=== PATIENT | male | born 1940 | race Two or more races ===

== ENCOUNTER 2023-04-24 07:35 | Outpatient (CLI) | payer OTHER ==
[~2023-04-24 07:35] MED LIST: ALPHAGAN P5 M2 OP; DAFLONEX-XL TA1 EACH PO; FELODIPINE ER2.5 MG PO; FOLIC ACID1 MG PO; GLUCOSAMINE PO; IBRERSARTAN PO; LUMIGAN2.5 M1 OP; METHOTREXATE2.5 MG PO; MULTAQ400 MG PO; OMEGA 3 1,0001 EACH PO; PROTONIX40 M1 PO; RESTORIL30 M1 PO; [UNRECOGNIZED DRUG - OTHER] IM; [UNRECOGNIZED DRUG - OTHER] PO
== END 2023-04-24 07:41 | disposition home or self-care (01) ==
LOC: TOM 07:35
PROVIDERS: ATTEND Internal Medicine Gastroenterology
DX: K63.5 Polyp of colon (principal); K56.609 Unspecified intestinal obstruction, unspecified as to partial versus complete obstruction; Z80.0 Family history of malignant neoplasm of digestive organs